=== PATIENT | male | born 1940 | race Caucasian/White ===

== ENCOUNTER 2018-12-01 12:12 | Observation (INO) | payer OTHER ==
[2018-12-01] MEDS ORDERED: ONDANSETRON 4 MG (ODT) TAB PO PRN (14:00)
[2018-12-01] MEDS ORDERED: LOPERAMIDE HCL 2 MG CAPSULE PO PRN (14:00)
[2018-12-01] MEDS ORDERED: DIPHENHYDRAMINE 25 MG TAB/CAP PO PRN (14:00)
[2018-12-01] MEDS ORDERED: ACETAMINOPHEN 325 MG TABLET PO PRN (14:00)
[2018-12-01] MEDS ORDERED: ONDANSETRON 4 MG/2 ML VIAL IV PRN (14:00)
[2018-12-01] MEDS ORDERED: POLYETHYL GLY 3350 17 GM/DOSE PO PRN (14:00)
[2018-12-01 14:11] LABS: Absolute Lymphocytes (CBC) 0.6 K/uL (0.7-4.9); Absolute Monocytes 0.6 K/uL (0.1-1.3); Absolute Neutrophil 2.2 K/uL (1.8-8.0); Basophils % 0.2 % (0-1.3); Eosinophils % 1.4 % (0-4.4); Hematocrit 32.5 % (39.6-49.0); Lymphocytes % 17.3 % (15.3-44.8); MPV 7.6 fL (7.6-11.3); Monocytes % 16.3 % (3.3-12.3); RBC Red Blood Cell Count 3.58 M/uL (4.33-5.43)
[2018-12-01 14:14] LABS: Protime INR 1.14
[2018-12-01 14:48] LABS: Albumin 3.1 g/dL (3.4-5.0); Bilirubin Direct 0.4 mg/dL (0-0.2); Bilirubin Total 0.9 mg/dL (0.2-1.0); Magnesium 1.9 mg/dL (1.8-2.4); Phosphorus 2.6 mg/dL (2.5-4.9); Protein, Total 6.2 g/dL (6.4-8.2); Thyroid Stimulating Hormone 1.75 uIU/mL (0.360-3.740)
[2018-12-01] MEDS ORDERED: ALBUTEROL 2.5 MG/3 ML NEB SOL NEB PRN (14:56)
--- NOTE | 2018-12-01 14:57 | RAD REPORT ---
EXAM DESCRIPTION: CT - Thorax Wo Con - 12/01/2018 2:26 pm CLINICAL HISTORY: sob COMPARISON: 2008 CT chest TECHNIQUE: Computed axial tomography of the chest was obtained. Contrast was not requested. High-res olution images obtained. All CT scans are performed using dose optimization technique as appropriate and may include automated exposure control or mA/KV adjustment according to patient size. FINDINGS: The evaluation of mediastinum, ivet and vessels is limited secondary to lack of IV contras t administration. Scarring within the right lung apex is without significant change from prior examination. Additional areas of scarring are present within the right lower lobe with right pleural thickening unchanged. A lung consolidation is not noted. An alveolitis is not seen. A small left pleural effusion is present. Right pleural calcifications are noted. A pericardial effusion is not seen. Coronary arterial calcifications. No mediastinal or hilar lymphadenopathy is seen. The heart is mildly enlarged A couple of small right renal calculi are present IMPRESSION: Areas of scarring within the right lung without significant change from a 2008 exam Right pleural calcifications probably the sequela of either prior trauma or prior infection.
--- NOTE | 2018-12-01 16:06 | RAD REPORT ---
EXAM DESCRIPTION: Krista Pa And Lat (2 Views)12/01/2018 2:46 pm CLINICAL HISTORY: Chest pain COMPARISON: 2016 FINDINGS: Right lung opacities are without obvious change compatible with scarring. Right pleural th ickening and pleural calcifications noted. Small left pleural effusions seen The heart is mildly to moderately enlarged. Right apical pleural thickening unchanged Postsurgical changes involve the chest.
[2018-12-01] MEDS ORDERED: INFLUENZA VACCINE (for 3y+) 0.5 ML DOSE IMVAC ONE (17:00)
[2018-12-01] MEDS ORDERED: PNEUMOCOCCAL VACCINE 0.5 ML IMVAC ONE (17:00)
[2018-12-01] MEDS: LEVALBUTEROL 1.25 MG/3 ML NEB NEB SCH (20:50)
[2018-12-01] MEDS: IPRATROPIUM BROM 0.5MG/2.5ML NEB SCH (20:50)
[2018-12-01 21:27] LABS: Blood Morphology Comment NOT SEEN (NOT SEEN); Platelet Estimate DECR; Urine White Blood Cell Casts OK
[2018-12-01] MEDS: FUROSEMIDE 20 MG/ 2ML VIAL IV SCH (21:55)
--- NOTE | 2018-12-01 22:56 | EKG ---
Test Date: 2018-12-01 Test Time: 13:41:36 Strike Operations Officer: SARAH MEASUREMENT RESULTS: Intervals: Rate: 95 HI: 218 QRSD: 130 QT: 380 QTc: 477 [place]: P: 68 HI: 218 QRS: -51 T: 100 INTERPRETIVE STATEMENTS: Sinus rhythm with 1st degree AV block Left axis deviation Intraventricular conduction delay Cannot rule out Septal infarct, age undetermined Abnormal ECG Compared to ECG 11/10/2008 06:23:28 First degree AV block now present Left-axis deviation now present QRS has widened Myocardial infarct finding now present Electronically Signed On 12-01-18 22:56:06 ANATOMY AND PHYSIOLOGY INSTRUCTOR by Devan Potts
[2018-12-01] MEDS ORDERED: RIVAROXABAN 10 MG TABLET PO SCH (23:00)
[2018-12-02 01:57] LABS: Urine Appearance CLEAR; Urine Bilirubin NEGATIVE (NEG); Urine Blood NEGATIVE (NEG); Urine Color YELLOW; Urine Glucose NEGATIVE (NEG); Urine Protein NEGATIVE (NEG); Urine Urobilinogen 0.2 mg/dL (0.2-1.0); Urine pH 5.5 (5.0-7.0)
[2018-12-02 02:04] LABS: Urine Microscopic Reflex NO UMIC
[2018-12-02] MEDS: LEVALBUTEROL 1.25 MG/3 ML NEB NEB SCH ×3 (02:18→14:00)
[2018-12-02] MEDS: IPRATROPIUM BROM 0.5MG/2.5ML NEB SCH ×3 (02:18→14:00)
[2018-12-02 06:33] LABS: Absolute Lymphocytes (CBC) 0.6 K/uL (0.7-4.9); Absolute Monocytes 0.6 K/uL (0.1-1.3); Absolute Neutrophil 2.1 K/uL (1.8-8.0); Basophils % 0.2 % (0-1.3); Hematocrit 30.8 % (39.6-49.0); Lymphocytes % 19.1 % (15.3-44.8); MPV 7.2 fL (7.6-11.3); Monocytes % 16.9 % (3.3-12.3); RBC Red Blood Cell Count 3.38 M/uL (4.33-5.43)
[2018-12-02 06:40] LABS: Magnesium 1.7 mg/dL (1.8-2.4); Potassium 3.7 mmol/L (3.5-5.1)
--- NOTE | 2018-12-02 08:46 | ECHO ---
HEIGHT: 6 ft 0 in WEIGHT: 269 lb 0 oz DATE OF STUDY: 12/01/[address]: Ernie Horton MD 2-DIMENSIONAL: YES M.MODE: YES DOPPLER: YES COLOR FLOW: YES TDS: YES PORTABLE: NO DEFINITY: NO BUBBLE STUDY: NO DIAGNOSIS: CONGESTIVE HEART FAILURE CARDIAC HISTORY: CATHERIZATION: YES SURGERY: YES PROSTHETIC VALVE: NO PACEMAKER: NO MEASUREMENTS (cm) DIASTOLIC (NORMALS) SYSTOLIC (NORMALS) IVSd 0.9 (0.6-1.2) LA Diam 5.0 (1.9-4.0) LVEF 40-45% LVIDd 5.7 (3.5-5.7) LVIDs 4.2 (2.0-3.5) %FS 26% LVPWd 1.1 (0.6-1.2) Ao Diam 2.9 (2.0-3.7) 2 DIMENSIONAL ASSESSMENT: RIGHT ATRIUM: NORMAL LEFT ATRIUM: DILATED RIGHT VENTRICLE: NORMAL LEFT VENTRICLE: NORMAL TRICUSPID VALVE: NORMAL MITRAL VALVE: NORMAL PULMONIC VALVE: NORMAL AORTIC VALVE: STENOSIS PERICARDIAL EFFUSION: NONE AORTIC ROOT: NORMAL LEFT VENTRICULAR WALL MOTION: AKINESIS OF SEPTUM AND ANTERIOR ORR. DOPPLER/COLOR FLOW: MODERATE AORTIC STENOSIS. PEAK/ MEAN GRADIENT 35/17. ESTIMATED AORTIC VALVE AREA 1.1 CENTIMETERS SQUARED. MILD TO MODERATE TRICUSPID REGURGITATION. SEVERE PULMONARY HYPERTENSION. ESTIMATED RIGHT VENTRICULAR SYSTOLIC PRESSURE 71 mmHg. ESTIMATED RIGHT ATRIAL PRESSURE 15 mmHg. MILD MITRAL REGURGITATION. COMMENTS: MILDLY DEPRESSED LEFT VENTRICULAR EJECTION FRACTION WITH WALL MOTION ABNORMALITY. DILATED LEFT ATRIUM. MODERATE AORTIC STENOSIS. MILD TO MODERATE TRICUSPID REGURGITATION. SEVERE PULMONARY HYPERTENSION. MILD MITRAL REGURGITATION. TECHNOLOGIST: Mitchell NOEL
[2018-12-02] MEDS ORDERED: predniSONE 10 MG TAB PO SCH (09:00)
[2018-12-02] MEDS ORDERED: ENOXAPARIN 40 MG/0.4 ML SQ SCH (09:00)
[2018-12-02] MEDS ORDERED: SPIRONOLACTONE 25 MG TABLET PO SCH (09:00)
[2018-12-02] MEDS ORDERED: CEFUROXIME 250 MG TAB PO SCH (09:00)
[2018-12-02] MEDS ORDERED: LOSARTAN POTASSIUM 50 MG TABLET PO SCH (09:00)
[2018-12-02] MEDS: FUROSEMIDE 20 MG/ 2ML VIAL IV SCH (09:02)
[2018-12-02 09:03] LABS: Blood Morphology Comment NOT SEEN (NOT SEEN); Platelet Estimate DECR; Urine White Blood Cell Casts OK
--- NOTE | 2018-12-02 10:03 | RAD REPORT ---
EXAM DESCRIPTION: CT - Chest For Pe Angio - 12/02/2018 9:48 am CLINICAL HISTORY: Chest pain, shortness of breath COMPARISON: Chest exam December 01, CT chest December 01 TECHNIQUE: Dynamically enhanced 3 mm thick images of the chest were obtained during administration o f approximately 150mL Isovue 370 IV contrast. Coronal and oblique MIP reconstruction images were gene rated and reviewed. Exam utilizes a protocol to evaluate the pulmonary arterial tree. All CT scans are performed using dose optimization technique as appropriate and may include automated exposure control or mA/KV adjustment according to patient size. FINDINGS: No pulmonary emboli are identified. Far peripheral branch assessment is limited by motion. Pulmonary emboli are not suspected. The aorta as imaged shows no acute or suspicious finding. No pericardial thickening or effusion. Hear t size has enlarged slightly from December 01 Right apical pleural thickening and subpleural fibrotic stranding of the lung parenchyma stable from prior imaging. Patient has dense right-side calcified pleural plaquing changes. Right lung base scarr ing changes are stable. Small left pleural effusion has developed layering from base to apex. Interst itial pattern is somewhat thickened compared to prior study. A mild interstitial edema or infiltrate suspected. No mediastinal or hilar suspicious masses. No chest wall masses or abnormal axillary lymphadenopathy. IMPRESSION: No pulmonary emboli identified. Small layering left pleural effusion has developed extending from base to apex. Suspected interstitial edema or infiltrate throughout the lung parenchyma. Heart size is fractionally increased from December 01.
[2018-12-02 10:48] LABS: Arterial Blood Carboxyhemoglob 2.3 % (0-1.5); Blood Gas Oxyhemoglobin 87.5 % (94-97); Blood O2 Saturation 89.8 % (92-98.5)
--- NOTE | 2018-12-02 11:45 | P.CNS ---
Date of Consult: 12/02/18 Reason for Consult: Pulmonary hypertension Chief Complaint: Shortness of breath History of Present Illness: Patient is 78 years of age a very poor historian complaining of chest congestion shortness of breath admitted directly from the office complains of dyspnea on exertion over he has significant dementia chronic lower extremity edema with exam but this changes is found to have severe pulmonary hypertension with congestive heart failure patient is on prednisone at home history of significant coronary artery disease Allergies No Known Allergies Allergy (Verified 12/01/18 14:12) Home Medications: Losartan Potassium [Cozaar*] 50 mg PO DAILY 12/01/18 Pravastatin Sodium 80 mg PO DAILY 12/01/18 predniSONE [Deltasone] 10 mg PO DAILY 12/01/18 - Past Medical/Surgical History Diabetic: No -: heart bypass -: knee surgery -: cataract sx -: heart stents - Family History Father History Unknown: Yes Mother History Unknown: Yes - Social History Alcohol use: Yes CD- Drugs: No Caffeine use: Yes Place of Residence: Home Review of Systems General: Weakness Respiratory: Cough, Shortness of Breath Cardiovascular: Edema Physical Examination Temp Pulse Resp BP Pulse Ox 98.3 F 89 16 129/59 L 91 12/02/18 08:00 12/02/18 09:03 12/02/18 08:00 12/02/18 09:03 12/02/18 08:00 General: Alert, Oriented x3 HEENT: Atraumatic Neck: Supple Respiratory: Clear to auscultation bilaterally Cardiovascular: Normal S1 S2, Edema (Significant lower extremity edema) Laboratory Data (last 24 hrs) 12/02/18 06:01: Sodium 142, Potassium 3.7, BUN 21 H, Creatinine 1.03, Glucose 96 , Magnesium 1.7 L 12/02/18 06:01: WBC 3.3 L, Hgb 10.5 L, Hct 30.8 L, Plt Count 92 L 12/01/18 13:47: PT 13.5 H, INR 1.14, APTT 30.7 12/01/18 13:47: Sodium 143, Potassium 4.0, BUN 22 H, Creatinine 1.18, Glucose 122 H, Phosphorus 2.6, Magnesium 1.9, Total Bilirubin 0.9, AST 25, ALT 31, Alkaline Phosphatase 110 12/01/18 13:47: WBC 3.4 L, Hgb 11.1 L, Hct 32.5 L, Plt Count 97 L - Problems (1) Pulmonary hypertension Current Visit: Yes Status: Acute Plan: Patient is 78 years of age admitted with shortness of breath he has severe pulmonary hypertension with congestive heart failure patient is also mildly hypoxic and hypercapnic former smoker mildly anemic his kidney function is normal BNP elevated CT scan no evidence of pulmonary embolism, bilateral small pleural effusion with interstitial changes most likely underlying CHF patient is currently on spironolactone also consider adding low-dose Lasix right now I will not qualify for home O2 and also need bronchodilators for the possibility of underlying obstructive airways disease outpatient pulmonary function testing and evaluation for pulse tsh is normal and not sure why is on prednisone patient is already anti coagulated
--- NOTE | 2018-12-02 14:35 | CON ---
History Of Present Illness: Mr. March was placed in the hospital by Dr. Horton directly from his office. I speak with Mr. March, he is alert and knows where he is. He is unable to give a cogen t history. He seems confused about a lot of things. Apparently, there was some pain and it hurts a lot when he takes a deep breath, although today he feels quite a bit better. He has had an echocardi ogram that reveals previous myocardial infarction, EF in the high 40s and he has severe pulmonary hyp ertension. Estimated PA pressure was in the 70s. He is not known to have that. He is known to have had previous bypass surgery, previous stents. Lot of the history I am not sure of, it is not availa ble in our chart. Old records were new and comes from the patient whose history is actually fairly u nreliable. A CT angio of the chest has been done, not yet interpreted. Medications: His outpatient medications have been prednisone, pravastatin, and losartan. The predni sone is 10 mg per day. Physical Examination: General: He is 6 feet tall, 269 pounds, alert, but confused, probably has some level of dementia. H e is obese. Lungs: Reveal mostly bronchial type breath sounds. Heart: Reveals a friction rub. It seems to be a pleural and pericardial friction rub. I do not giancarlo reciate a significant murmur, but he does have aortic sclerosis. It is actually stenotic to the poin t where there is a 35 mm gradient. There are no troponins. His EKG would not indicate this is an ac [place] coronary syndrome. It indicates an old anterior [place] consistent with the history we got in the EKG . Impression: The patient probably has some pleural or pericardial disease causing most of his symptom s. I think trying to give him more prednisone might be helpful. Perhaps a pulmonary consult could b e obtained. Dr. Horton is agreeable. The effusion is actually quite small than they will be chronic. We do not have old x-rays here. But I would think increasing the dose of prednisone would be the m ain thing I would go for to try and help him, in a course rule out the pulmonary embolus and if it is there give him full-time anticoagulation. NAFISA/XIN Voice ID: [id number] Report ID: [id number]
--- NOTE | 2018-12-02 17:10 | P.DS ---
Admission Date: 12/01/18 Discharge Date: 12/02/18 Disposition: ROUTINE DISCHARGE Discharge Condition: SERIOUS Reason for Admission: Shortness of breath Hospital Course: MR. LOFTON HAS SIGNIFICANT DEMENTIA. HE COMES WITH DYSPNEA, FATIGUE BUT WITH IV LASIX HE FEELS GREAT NOW. HE WANTS TO GO HOME. HE IS ALSO NOW ON SPIRONOLACTONE. HE SHOWS SOME LAB SIGNS OF CIRRHOSIS. 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 ALBARO PATINO WHO IS [facility] CALLED AND I TALKED TO HER. I EXPLAINED WHAT LOW EF, SEVERE PULMONARY HTN, CHRONIC VENOUS CONGESTION OF LEGS MEAN. WHY ALL THESE ARE INCURABLE. BOTH DOCTORS AGREE WITH ME. SHE ASKED FOR OXYGEN AND I SAID AT 90% O2 SAT HE DOES NOT QUALIIFY BY MEDICARE. SHE SAID "DOES THAT MEAN YOU ARE GOING TO LET HIM ?" I REPLIED "I DID NOT SAY THAT". HE DOES NOT QUALIFY MEANS IT IS NOT MEDICALLY NECESSARY PER CRITERIA FOLLOWED BY MEDICARE. AT THAT POINT ALBARO CALMED DOWN. HIS PROGNOSIS IS POOR AND HE SHOULD BE IN [place] UNDER MEDICAID. SHE AGREES AND WILL CALL AND GO VISIT [place] WHERE HER MOTHER ALSO STAYED. Vital Signs/Physical Exam: Temp Pulse Resp BP Pulse Ox 97.0 F 89 16 134/63 99 12/02/18 12:00 12/02/18 12:00 12/02/18 12:00 12/02/18 12:00 12/02/18 12:00 General: Alert, Mild distress, Obese HEENT: Atraumatic, PERRLA, EOMI Neck: Supple, JVD not distended Respiratory: Clear to auscultation bilaterally, Normal air movement Cardiovascular: Regular rate/rhythm, Normal S1 S2 Gastrointestinal: Normal bowel sounds, No tenderness Musculoskeletal: No tenderness Integumentary: No rashes Neurological: Normal speech, Normal tone, Normal affect Lymphatics: No axilla or inguinal lymphadenopathy Laboratory Data at Discharge: WBC 3.3 K/uL (4.3-10.9) L 12/02/18 06:01 Hgb 10.5 g/dL (13.6-17.9) L 12/02/18 06:01 Hct 30.8 % (39.6-49.0) L 12/02/18 06:01 Plt Count 92 K/uL (152-406) L 12/02/18 06:01 PT 13.5 SECONDS (9.5-12.5) H 12/01/18 13:47 INR 1.14 12/01/18 13:47 APTT 30.7 SECONDS (24.3-36.9) 12/01/18 13:47 Sodium 142 mmol/L (136-145) 12/02/18 06:01 Potassium 3.7 mmol/L (3.5-5.1) 12/02/18 06:01 BUN 21 mg/dL (7-18) H 12/02/18 06:01 Creatinine 1.03 mg/dL (0.55-1.3) 12/02/18 06:01 Glucose 96 mg/dL (74-106) 12/02/18 06:01 Phosphorus 2.6 mg/dL (2.5-4.9) 12/01/18 13:47 Magnesium 1.7 mg/dL (1.8-2.4) L 12/02/18 06:01 Total Bilirubin 0.9 mg/dL (0.2-1.0) 12/01/18 13:47 AST 25 U/L (15-37) 12/01/18 13:47 ALT 31 U/L (12-78) 12/01/18 13:47 Alkaline Phosphatase 110 U/L (45-117) 12/01/18 13:47 Home Medications: Losartan Potassium [Cozaar*] 50 mg PO DAILY 12/01/18 Pravastatin Sodium 80 mg PO DAILY 12/01/18 predniSONE [Deltasone*] 10 mg PO DAILY 12/01/18 Cefuroxime [Ceftin*] 250 mg PO BID #10 tab 12/02/18 Furosemide [Lasix] 20 mg PO BIDL #60 tab 12/02/18 Spironolactone 50 mg PO DAILY #30 tablet 12/02/18 New Medications: Cefuroxime [Ceftin*] 250 mg PO BID #10 tab Furosemide [Lasix] 20 mg PO BIDL #60 tab Spironolactone 50 mg PO DAILY #30 tablet
[2018-12-02] MEDS ORDERED: ATORVASTATIN 10 MG TAB PO SCH (21:00)
== END 2018-12-02 14:23 | disposition home or self-care (01) ==
LOC: 2ND 12:35
PROVIDERS: ADMIT Internal Medicine; ATTEND Internal Medicine
DX: I27.20 Pulmonary hypertension, unspecified (principal); I25.10 Atherosclerotic heart disease of native coronary artery without angina pectoris; Z95.1 Presence of aortocoronary bypass graft; Z95.5 Presence of coronary angioplasty implant and graft; F03.90 Unspecified dementia, unspecified severity, without behavioral disturbance, psychotic disturbance, mood disturbance, and anxiety; E66.9 Obesity, unspecified; Z68.36 Body mass index [BMI] 36.0-36.9, adult
CPT/HCPCS: 36415; 71046; 71250; 71275; 80048 ×2; 80076; 81003; 82306; 82607; 82805; 83735 ×2; 83880; 84100; 84443; 85025 ×2; 85379; 85610; 85730; 87077; 87086; 87088; 87186; 93005; 93306; 94640; G0378; G0379; J1940 ×2; Q9967; J7512

== ENCOUNTER 2020-07-05 19:45 | Emergency (ER) | payer OTHER ==
--- OUTSIDE RECORDS SUMMARY | 2020-07-05 19:47 | XMS REPORT | Continuity of Care Document ---
:1940 Author Organization [facility] t Address [address] [place] [address] Care Team Providers Name Role Phone Unavailable Unavailable Unavailable Problems Condition Condition Condition Status Onset Resolution Last Treating Co mments Source Name Details Category Date Date Treatment Clinician Date Dementia Dementia Problem [facility] other [facility] diseases diseases Mem[facility] a classified classified l elsewhere elsewhere Outp ati without without ent behavioral behavioral Cl inics disturbanc disturbanc e e Alzheimer' Alzheimer' Diagnosis Active [facility] disease s disease Luke s - with late with late Alexandre nimesh onset onset l Outpati ent Clinics 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 Medications Ordered Filled Start Stop Current Ordering Indication Dosage Frequency Signature Comments Components Source Medication Medication Date Date Medication? Clinician (SIG) Name Name Spironolact Spironolact Yes Ronal not [facility] one one Silvia defined [facility] Furosemide Furosemide Yes Ronal not [facility] Silvia defined [facility] Procedures This patient has no known procedures. Encounters Start End Encounter Admission Attending Care Care Encounter Source Date/Time Date/Time Type Type Clinicians Facility Department ID 2019-09-20 2019-09-20 [facility] [id number] [facility] 14:30:00 14:30:00 [facility] Results This patient has no known results.
[2020-07-05 20:39] LABS: Absolute Lymphocytes (CBC) 0.3 K/uL (0.7-4.9); Basophils % 0.2 % (0-1.3); Hematocrit 26.9 % (39.6-49.0); Lymphocytes % 5.9 % (15.3-44.8); MPV 8.3 fL (7.6-11.3); RBC Red Blood Cell Count 2.99 M/uL (4.33-5.43)
[2020-07-05 20:40] LABS: Protime INR 1.16
[2020-07-05 20:52] LABS: Albumin 2.8 g/dL (3.4-5.0); Bilirubin Direct 1.3 mg/dL (0-0.2); Bilirubin Total 2.5 mg/dL (0.2-1.0); Magnesium 2.6 mg/dL (1.8-2.4); Potassium 4.4 mmol/L (3.5-5.1); Protein, Total 7.2 g/dL (6.4-8.2); Troponin (Emerg Dept Use Only) 0.05 ng/mL (0.0-0.045)
--- NOTE | 2020-07-05 20:56 | RAD REPORT ---
EXAM DESCRIPTION: CT - Head C Spine Mpr Wo Con - 07/05/2020 8:33 pm CLINICAL HISTORY: Head and neck injury status post fall. Head and neck pain COMPARISON: None. TECHNIQUE: Computed axial tomography of the head and cervical spine was obtained. Sagittal and coronal reconstruction was performed. All CT scans are performed using dose optimization technique as appropriate and may include automated exposure control or mA/KV adjustment according to patient size. FINDINGS: Moderate to large acute subdural hematoma is present along the left frontal convexity exte nding posteriorly. A fluid fluid level is present. Shift of the midline structures 5 millimeters to t he right. Small old chronic subdural effusion along the right cerebral convexity. No additional significant acute intracranial abnormality. A cervical fracture is not visualized. Minimal anterior subluxation C2 on C3. Moderate to marked spondylosis involves cervical spine. No dislocation. Central and foraminal stenosi s is present. Debris is present within hypo and oropharynx. IMPRESSION: Moderate to large acute left subdural hematoma with shift of the midline structures 5 mi llimeters to the right. A subacute component is suspected as well. A cervical fracture is not visualized. Debris within and the pharynx of uncertain etiology Examination was discussed with Dr. Grace at 8:40 p.m. on July 05, 2020
--- NOTE | 2020-07-05 21:03 | RAD REPORT ---
EXAM DESCRIPTION: RAD - Pelvis - 07/05/2020 8:57 pm CLINICAL HISTORY: Pelvic pain status post injury FINDINGS: No fracture or dislocation is seen.
--- NOTE | 2020-07-05 21:03 | RAD REPORT ---
EXAM DESCRIPTION: CT - Chest Abd Pelvis Wo Con - 07/05/2020 8:42 pm CLINICAL HISTORY: Fall with chest and abdominal pain COMPARISON: 2018 CT chest TECHNIQUE: Computed axial tomography of the chest, abdomen and pelvis was obtained. Oral contrast wa s given. IV contrast was not requested. All CT scans are performed using dose optimization technique as appropriate and may include automated exposure control or mA/KV adjustment according to patient size. FINDINGS: The evaluation of mediastinum, ivet, vessels and solid organs is limited secondary to the lack of IV contrast administration No mediastinal hematoma A pleural effusion is not present. A pericardial effusion is not seen. No pulmonary contusion . The liver, spleen, pancreas, adrenals, bladder and kidneys do not demonstrate a traumatic injury Calcified right pleural thickening. Chronic right apical lung opacities There is no evidence of diverticulitis. 25 millimeter radiopaque structure within central abdomen IMPRESSION: No acute traumatic injury involving chest/pelvis seen
--- NOTE | 2020-07-05 21:04 | RAD REPORT ---
EXAM DESCRIPTION: Krista Single View07/05/2020 8:57 pm CLINICAL HISTORY: Chest pain COMPARISON: 2019 FINDINGS: The lungs appear clear of acute infiltrate. The heart is mildly enlarged. Postsurgical changes involve the chest. Calcified right pleural thickening IMPRESSION: No acute abnormalities displayed
[2020-07-05 21:32] LABS: Blood Morphology Comment NOT SEEN (NOT SEEN); Platelet Estimate ADEQ; Urine White Blood Cell Casts OK
--- NOTE | 2020-07-05 22:03 | EDPHYS ---
Physician Documentation [facility] Name: Zechariah March Jr Age: 80 yrs Sex: Male : 1940 Arrival Date: 07/05/2020 Time: 19:46 Bed 25 Private MD: ED Physician Luis Enrique Grace HPI: 07/05 20:05 This 80 yrs old Male presents to ER via EMS with complaints of Fall Injury, cp COVID positive. 20:05 Onset: The symptoms/episode began/occurred today. Associated injuries: The patient cp sustained no obvious injury. Unable to obtain HPI due to baseline dementia. EMS reports patient was found on ground by [facility] staff. Historical: - Allergies: 21:01 No Known Allergies; ks7 - Home Meds: 21:01 acetaminophen 650 mg Rectal supp 1 suppository every 4 hours for Pain [Active]; ks7 ascorbic acid (vitamin C) 500 mg tab daily [Active]; lorazepam 2 mg Oral tab 1 tab nightly [Active]; bisacodyl 10 mg Rectal supp 1 suppository as needed for Constipation [Active]; clonazepam 0.5 mg Oral tab 1 tab every morning [Active]; docusate sodium 100 mg Oral cap 1 cap 2 times per day for Constipation [Active]; Guaifenesin-DM 10-100 mg/5 mL oral liqd 10 mL every 6 hours for Cough [Active]; Haldol Solution. 5ml/ml. Apply to wrist topically BID related to mood disorder [Active]; hyoscyamine sulfate 0.125 mg SL subl 0.25 mg every 4 hours [Active]; DuoNeb 0.5 mg-3 mg(2.5 mg base)/3 mL Inhl nebu 3 mL 4 times per day for Chronic Obstructive Pulmonary Disease with Bronchospasms [Active]; Klor-Con 10 10 mEq Oral TbER 1 tab once daily [Active]; Lasix 20 mg Oral tab 1 tab once daily [Active]; lisinopril 10 mg Oral tab 1 tab once daily [Active]; loratadine 10 mg oral tab 1 tab once daily [Active]; lorazepam 0.5 mg Oral tab 1 tab [Active]; lorazepam 0.5 mg Oral tab 2 tabs [Active]; morphine 20 mg/5 mL (4 mg/mL) Oral soln [Active]; morphine 20 mg/5 mL (4 mg/mL) Oral soln [Active]; mupirocin 2 % topical oint daily [Active]; naproxen sodium 220 mg Oral tab 1 tab every 8 hours [Active]; prednisone 5 mg Oral tab once daily [Active]; Seroquel 25 mg Oral tab 1 tab nightly [Active]; zinc sulfate 220 mg Oral tab 220 mg daily [Active]; - PMHx: 21:01 Dementia; COPD; CHF; Arthritis; Anxiety; Aphagia; Unspecified Protein-Calorie 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 - Immunization history: Last tetanus immunization: - up to date. - Social history:: Smoking status: Patient/guardian denies using tobacco. ROS: 20:07 Constitutional: Negative for fever. cp 20:07 Unable to obtain ROS due to altered mental status. cp Exam: 20:15 Constitutional: The patient appears in no acute distress, alert, awake, cp non-diaphoretic, non-toxic, well developed, frail. 20:15 Head/Face: Normocephalic, atraumatic. cp 20:15 Eyes: Periorbital structures: appear normal, Pupils: equal, round, and reactive to light and accomodation, Conjunctiva: normal, no exudate, no injection, Sclera: no appreciated abnormality, Lids and lashes: appear normal, bilaterally. 20:15 ENT: External ear(s): are unremarkable, Nose: is normal, Mouth: Lips: moist, Oral mucosa: moist, Posterior pharynx: Airway: no evidence of obstruction, patent. 20:15 Neck: C-spine: crepitus, is not appreciated. 20:15 Chest/axilla: Inspection: normal, Palpation: crepitus, is not appreciated. 20:15 Cardiovascular: Rate: normal, Rhythm: regular, Edema: is not appreciated, JVD: is not appreciated. 20:15 Respiratory: the patient does not display signs of respiratory distress, Respirations: normal, no use of accessory muscles, no retractions, labored breathing, is not present, Breath sounds: are clear throughout, no decreased breath sounds, no stridor, no wheezing. 20:15 Abdomen/GI: Inspection: abdomen appears normal, Bowel sounds: active, all quadrants, Palpation: abdomen is soft and non-tender, in all quadrants. 20:15 Musculoskeletal/extremity: Exam is negative for decreased range of motion, deformity, injury. 20:15 Skin: cellulitis, is not appreciated, no rash present. 20:15 Neuro: Orientation: Not oriented to person, place, situation, Mentation: responsive to voice unable to follow commands, Motor: moves all fours. Vital Signs: 19:50 BP 151 / 109; Pulse 88; Resp 18; Temp 98.2(O); Pulse Ox 98% on R/A; Pain 0/10; ks7 21:02 BP 119 / 50; Pulse 89; Resp 18; Pulse Ox 98% on R/A; Pain 0/10; ks7 22:09 BP 126 / 93; Pulse 105; Resp 18; Temp 98(O); Pulse Ox 97% on R/A; Pain 0/10; ks7 23:02 BP 110 / 47; Pulse 85; Resp 18; Temp 98.2; Pulse Ox 97% on R/A; Pain 0/10; ks7 Elizabeth Coma Score: 19:55 Eye Response: spontaneous(4). Verbal Response: confused(4). Motor Response: obeys ks7 commands(6). Total: 14. Trauma Score (Adult): 19:55 Eye Response: spontaneous(1); Verbal Response: confused(1); Motor Response: obeys ks7 commands(2); Systolic BP: > 89 mm Hg(4); Respiratory Rate: 10 to 29 per min(4); Winchester Score: 14; Trauma Score: 12 MDM: 19:58 Patient medically screened. cp 21:00 Differential diagnosis: abrasion, closed head injury, contusion, fracture, laceration, cp multiple trauma. 21:42 ED course: Spoke with Moriah Farias who has power of regulatory attorney for patient and discussed cp findings of head CT showing frontal subdural bleed with right shift. Discussed need to transfer with acceptance to [facility] for neurosurgery consult. At this point Mr Farias declines transfer and requests patient be sent back to [place] for continued hospice care. 21:45 Data reviewed: vital signs, nurses notes, lab test result(s), radiologic studies, CT cp scan, plain films, I have discussed the patient's presentation/case with the attending Emergency Department Physician; and as a result, I will discharge patient back to [place] to continue hospice care. 07/05 20:00 Order name: Basic Metabolic Panel; Complete Time: 21:41 cp 08 21:41 Interpretation: Normal except: NA 151; CL 114; GLUC 116; BUN 51; CRE 1.58; GFR 43. cp 07/05 20:00 Order name: CBC with Diff; Complete Time: 21:41 cp 07/05 21:28 Interpretation: Normal except: RBC 2.99; HGB 8.9; HCT 26.9; PLT 130; RDW 15.9; YINA% cp 85.3; LYM% 5.9; LYMA 0.3. 07/05 20:00 Order name: LFT's; Complete Time: 21:41 cp 07/05 21:41 Interpretation: Normal except: AST 55; ALK 125; BILIT 2.5; BILID 1.3; ALB 2.8; GLOB cp 4.4; A/G 0.6. 07/05 20:00 Order name: Magnesium; Complete Time: 21:41 cp 07/05 20:00 Order name: PT-INR; Complete Time: 21:27 cp 07/05 20:00 Order name: Troponin (emerg Dept Use Only); Complete Time: 21:41 cp 07/05 21:42 Interpretation: Abnormal: TROPED 0.05. cp 07/05 20:00 Order name: CT Head C Spine; Complete Time: 21:08 cp 07/05 20:00 Order name: XRAY Chest (1 view); Complete Time: 21:08 cp 07/05 20:00 Order name: Cardiac monitoring 07/05 20:00 Order name: EKG - Nurse/Tech 07/05 20:00 Order name: XRAY Pelvis; Complete Time: 21:08 cp 07/05 20:38 Order name: CT Chest Abdomen Pelvis W/O Contrast; Complete Time: 21:08 cp 07/05 21:32 Order name: CBC Smear Scan; Complete Time: 21:41 EDMS 07/05 20:00 Order name: IV Saline Lock 07/05 20:00 Order name: Labs collected and sent 07/05 20:00 Order name: O2 Per Protocol 07/05 20:00 Order name: O2 Sat Monitoring cp Administered Medications: No medications were administered Disposition: 22:15 Chart complete. 07/06 05:26 Co-signature as Attending Physician, Luis Enrique Grace MD I agree with the assessment and tw4 plan of care. Disposition: 07/05/20 22:02 [facility] to [facility]. Impression: Fall on same level from slipping, tripping and stumbling, Traumatic subdural hemorrhage - left frontal, Elevated Troponin, Anemia in chronic diseases classified elsewhere. - Condition is Stable. - Discharge Instructions: Anemia, Nonspecific, Intracranial Hemorrhage. - Medication Reconciliation Form, Thank You Letter, Antibiotic Education, Prescription Opioid Use, SBAR form form. - Follow up: Emergency Department; When: As needed; Reason: Worsening of condition. - Problem is new. - Symptoms are unchanged. Signatures: Dispatcher [employer] EDMS Jv Morales PA PA cp Wadley, Terrence, MD MD tw4 Maggy Alejandro RN RN ks7 Corrections: (The following items were deleted from the chart) 07/05 22:03 22:02 07/05/2020 22:02 Discharged to [facility]. Impression: Fall on same level from cp slipping, tripping and stumbling; Traumatic subdural hemorrhage - left frontal; Elevated Troponin. Condition is Stable. Forms are Medication Reconciliation Form, Thank You Letter, Antibiotic Education, Prescription Opioid Use. Follow up: Emergency Department; When: As needed; Reason: Worsening of condition. Problem is new. Symptoms are unchanged. cp 23:52 22:03 07/05/2020 22:02 Discharged to [facility]. Impression: Fall on same level from ks7 slipping, tripping and stumbling; Traumatic subdural hemorrhage - left frontal; Elevated Troponin; Anemia in chronic diseases classified elsewhere. Condition is Stable. Forms are Medication Reconciliation Form, Thank You Letter, Antibiotic Education, Prescription Opioid Use. Follow up: Emergency Department; When: As needed; Reason: Worsening of condition. Problem is new. Symptoms are unchanged. cp
--- NOTE | 2020-07-05 22:03 | ER ---
Nurse's Notes [facility] Name: Zechariah March Jr Age: 80 yrs Sex: Male : 1940 Arrival Date: 07/05/2020 Time: 19:46 Bed 25 Private MD: Diagnosis: Fall on same level from slipping, tripping and stumbling;Traumatic subdural hemorrhage-left frontal;Elevated Troponin;Anemia in chronic diseases classified elsewhere Presentation: 07/05 20:29 Chief complaint: EMS states: BIBA: from [place] [facility]. GLF. pt was found down on the ks7 ground. no s/s of bleeding, pt able to move all extremities, sitting up tyring to get oob. Pt tested positive for Covid-19 recently. On droplet precautions. Pt has hx of dementia, answers y/n questions only. In ED awake and alert. Oriented to self. Care prior to arrival: None. Mechanism of Injury: Fall GLF. Trauma event details: Injury occurred: [place]. 20:29 Acuity: JUAN 3 ks7 20:29 Method Of Arrival: EMS: [facility] ks7 23:04 Coronavirus screen: Client denies travel out of the [place] in the last 14 days. Client ks7 presents with at least one sign or symptom that may indicate coronavirus-19. Standard/surgical mask placed on the client. Provider contacted for isolation considerations. Client reports previous positive COVID test result. Date of collection: June 2020. Ebola Screen: Patient negative for fever greater than or equal to 101.5 degrees Fahrenheit, and additional compatible Ebola Virus Disease symptoms Patient denies exposure to infectious person. Patient denies travel to an Ebola-affected area in the 21 days before illness onset. Initial Sepsis Screen: Does the patient meet any 2 criteria? No. Patient's initial sepsis screen is negative. Does the patient have a suspected source of infection? No. Patient's initial sepsis screen is negative. Risk Assessment: Do you want to hurt yourself or someone else? Patient reports no desire to harm self or others. Onset of symptoms was July 05, 2020. Activity prior to arrival: confused. Transition of care: patient was received from another setting of care (long-term care facility), [facility]. Trauma Activation: Not Applicable Physician: ED Physician; Name: ; Notified At: ; Arrived At: Physician: General Surgeon; Name: ; Notified At: ; Arrived At: Physician: Radiology; Name: ; Notified At: ; Arrived At: Physician: Respiratory; Name: ; Notified At: ; Arrived At: Physician: Lab; Name: ; Notified At: ; Arrived At: Historical: - Allergies: 21:01 No Known Allergies; ks7 - Home Meds: 21:01 acetaminophen 650 mg Rectal supp 1 suppository every 4 hours for Pain [Active]; ks7 ascorbic acid (vitamin C) 500 mg tab daily [Active]; lorazepam 2 mg Oral tab 1 tab nightly [Active]; bisacodyl 10 mg Rectal supp 1 suppository as needed for Constipation [Active]; clonazepam 0.5 mg Oral tab 1 tab every morning [Active]; docusate sodium 100 mg Oral cap 1 cap 2 times per day for Constipation [Active]; Guaifenesin-DM 10-100 mg/5 mL oral liqd 10 mL every 6 hours for Cough [Active]; Haldol Solution. 5ml/ml. Apply to wrist topically BID related to mood disorder [Active]; hyoscyamine sulfate 0.125 mg SL subl 0.25 mg every 4 hours [Active]; DuoNeb 0.5 mg-3 mg(2.5 mg base)/3 mL Inhl nebu 3 mL 4 times per day for Chronic Obstructive Pulmonary Disease with Bronchospasms [Active]; Klor-Con 10 10 mEq Oral TbER 1 tab once daily [Active]; Lasix 20 mg Oral tab 1 tab once daily [Active]; lisinopril 10 mg Oral tab 1 tab once daily [Active]; loratadine 10 mg oral tab 1 tab once daily [Active]; lorazepam 0.5 mg Oral tab 1 tab [Active]; lorazepam 0.5 mg Oral tab 2 tabs [Active]; morphine 20 mg/5 mL (4 mg/mL) Oral soln [Active]; morphine 20 mg/5 mL (4 mg/mL) Oral soln [Active]; mupirocin 2 % topical oint daily [Active]; naproxen sodium 220 mg Oral tab 1 tab every 8 hours [Active]; prednisone 5 mg Oral tab once daily [Active]; Seroquel 25 mg Oral tab 1 tab nightly [Active]; zinc sulfate 220 mg Oral tab 220 mg daily [Active]; - PMHx: 21:01 Dementia; COPD; CHF; Arthritis; Anxiety; Aphagia; Unspecified Protein-Calorie 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 - Immunization history: Last tetanus immunization: - up to date. - Social history:: Smoking status: Patient/guardian denies using tobacco. Screenin:55 Abuse screen: Denies threats or abuse. TIA, dementia. Tuberculosis screening: No ks7 symptoms or risk factors identified. 21:01 Nutritional screening: No deficits noted. Fall Risk Fall in past 12 months (25 points). ks7 Secondary diagnosis (15 points) IV access (20 points). Ambulatory Aid- None/Bed Rest/Nurse Assist (0 pts). Gait- Weak (10 pts.). Mental Status- Overestimates/Forgets Limitations (15 pts.). Total Page Fall Scale indicates High Risk Score (45 or more points). Fall prevention measures have been instituted. Side Rails Up X 2 Placed Close to Nursing Station 1:1 Attendant Assigned Frequent Obs/Assessments Occuring. Primary Survey: 20:29 NO uncontrolled hemorrhage observed. A: The patient is alert. Airway: patent. ks7 Breathing/Chest: Respiratory pattern: regular, Respiratory effort: spontaneous, unlabored. Circulation: Pulses: palpable right radial artery, right dorsalis pedis artery, left radial artery and left dorsalis pedis artery. Skin color: pink, Skin temperature: warm. Disability Alert. Exposure/Environment: All clothing and personal items were removed. There is no evidence of uncontrolled external bleeding. No obvious injuries are noted at this time. Reassessment Airway Airway Patent Breathing/Chest Respiratory pattern Regular Circulation Pulses Palpable Color Phil Campbell Temperature Warm Disability Alert. Secondary Survey: 20:29 pt able to move all extremities. states no when asked if he has any pain. ks7 Assessment: 20:29 General: Appears slender, unkempt, Behavior is flat, quiet, restless. Pain: Denies pain.ks7 20:37 Reassessment: pt w/hx of dementia. confused, intermittently trying to get oob. pt ks7 follows commands, answers y/n questions. does not appear to be in distress. 21:13 Respiratory: Respiratory effort is even, unlabored, Breath sounds are clear ks7 bilaterally. in right upper lobe and left upper lobe Breath sounds with crackles in left lower lobe and left posterior lower lobe. 21:14 Neuro: Oriented to person, Moves all extremities. Pupils are PERRLA. ks7 22:23 Reassessment: Patient and/or family updated on plan of care and expected duration. Pain ks7 level reassessed. pt asleep right now. intermittent waking up and restless, pulling at lines. pt DNR, family says pt on hospice. will return to [place]. 23:03 Reassessment: Patient and/or family updated on plan of care and expected duration. Pain ks7 level reassessed. pt appears comfortable. Called [facility] spoke with Salazar KESSLER, gave report. Vital Signs: 19:50 BP 151 / 109; Pulse 88; Resp 18; Temp 98.2(O); Pulse Ox 98% on R/A; Pain 0/10; ks7 21:02 BP 119 / 50; Pulse 89; Resp 18; Pulse Ox 98% on R/A; Pain 0/10; ks7 22:09 BP 126 / 93; Pulse 105; Resp 18; Temp 98(O); Pulse Ox 97% on R/A; Pain 0/10; ks7 23:02 BP 110 / 47; Pulse 85; Resp 18; Temp 98.2; Pulse Ox 97% on R/A; Pain 0/10; ks7 Elizabeth Coma Score: 19:55 Eye Response: spontaneous(4). Verbal Response: confused(4). Motor Response: obeys ks7 commands(6). Total: 14. Trauma Score (Adult): 19:55 Eye Response: spontaneous(1); Verbal Response: confused(1); Motor Response: obeys ks7 commands(2); Systolic BP: > 89 mm Hg(4); Respiratory Rate: 10 to 29 per min(4); Elizabeth Score: 14; Trauma Score: 12 ED Course: 19:46 Patient arrived in ED. bb 19:47 Jv Morales PA is PHCP. cp 19:47 Luis Enrique Grace MD is Attending Physician. cp 19:55 Patient has correct armband on for positive identification. Placed in gown. Bed in low ks7 position. Call light in reach. Side rails up X2. 19:55 Patient maintains SpO2 saturation greater than 95% on room air. ks7 20:29 Maggy Alejandro, RN is Primary Nurse. ks7 20:32 Triage completed. ks7 20:34 CT Head C Spine In Process Unspecified. EDMS 20:42 CT Chest Abdomen Pelvis W/O Contrast In Process Unspecified. EDMS 20:58 XRAY Chest (1 view) In Process Unspecified. EDMS 20:58 XRAY Pelvis In Process Unspecified. EDMS 21:01 Resting quietly. ks7 21:01 No provider procedures requiring assistance completed. Inserted saline lock: 20 gauge ks7 in left antecubital area, using aseptic technique. Blood collected. 21:[address] [facility]. Spoke with [facility] \\[id number]. ar5 21:06 Patient moved back from [place]. ks7 21:15 - done with [facility] \T\[id number]. ar5 21:30 Canceled transfer, spoke with [facility] \\[id number]. ar5 23:04 Arm band placed on right wrist. ks7 23:06 Thermoregulation: warm blanket given to patient. ks7 23:36 IV discontinued, intact, bleeding controlled, No redness/swelling at site. Pressure ks7 dressing applied. Administered Medications: No medications were administered Intake: 19:55 PO: 0ml; Total: 0ml. ks7 Output: 19:55 Urine: 0ml; Total: 0ml. ks7 Outcome: 22:02 Discharge ordered by . cp 23:04 Condition: stable ks7 23:06 [facility] 23:35 [facility] Report called to Salazar KESSLER at [facility] Transfer ks7 form completed. 23:35 Discharge instructions given to EMS, Instructed on discharge instructions, Demonstrated understanding of instructions. 23:52 Patient left the ED. ks7 Signatures: Dispatcher [employer] Yuki Oconnor RN Jv Solorio PA PA cp Robles, Autumn ar Maggy Alejandro RN RN ks7
[2020-07-06 00:16] VITALS: O2SAT 97
[2020-07-06 00:18] VITALS: BP 110/47; TEMP 98.2
== END 2020-07-05 23:52 ==
LOC: ER 19:45
DX: S06.5X9A Traumatic subdural hemorrhage with loss of consciousness of unspecified duration, initial encounter (principal); R79.89 Other specified abnormal findings of blood chemistry; D63.8 Anemia in other chronic diseases classified elsewhere; W01.0XXA Fall on same level from slipping, tripping and stumbling without subsequent striking against object, initial encounter; Y93.9 Activity, unspecified; Y92.9 Unspecified place or not applicable; Z95.1 Presence of aortocoronary bypass graft; F03.90 Unspecified dementia, unspecified severity, without behavioral disturbance, psychotic disturbance, mood disturbance, and anxiety; F41.9 Anxiety disorder, unspecified
CPT/HCPCS: 36415; 70450; 71045; 71250; 72125; 72170; 74176; 80048; 80076; 83735; 84484; 85025; 85610; 99285